=== PATIENT | male | born 1990 | race Caucasian/White ===

== ENCOUNTER 2016-06-17 12:06 | Emergency (ER) | payer OTHER ==
[2016-06-17 13:31] LABS: BASO # 0.1 K/mm3 (0.0-0.2); BASO % 1.7 % (0.0-1.0); EOS # 0.3 K/mm3 (0.0-0.50); EOS % 3.1 % (0.0-3.0); LARGE UNSTAINED CELL # 0.2 K/mm3 (0.0-0.4); LARGE UNSTAINED CELL % 1.8 % (0.0-4.0); LYMPH # 1.5 K/mm3 (1.5-6.5); LYMPH % 15.8 % (24.0-44.0); MEAN CORPUSCULAR HGB CONC 32.6 g/dl (32.0-36.5); MONO # 0.4 K/mm3 (0.0-0.8); MONO % 4.2 % (0.0-5.0); NEUTROPHILS # 6.2 K/mm3 (1.8-7.7); NEUTROPHILS % 73.4 % (36.0-66.0); PLATELET COUNT, AUTOMATED 247 k/mm3 (150-450); RED CELL DISTRIBUTION WIDTH 12.6 % (11.5-14.5); WHITE BLOOD COUNT 8.5 K/mm3 (4.0-10.0)
[2016-06-17 13:47] LABS: CONTROL LINE MONO INT CTR LINE PRESENT
[2016-06-17 13:55] LABS: ALBUMIN 4.1 GM/DL (3.2-5.2); ALKALINE PHOSPHATASE 80 U/L (45-117); ALT/SGPT 24 U/L (12-78); AMYLASE 111 U/L (25-115); ANION GAP 7 MEQ/L (8-16); AST/SGOT 12 U/L (15-37); BILIRUBIN,DIRECT < 0.1 MG/DL (0.0-0.2); BILIRUBIN,TOTAL 0.4 MG/DL (0.2-1.0); BLOOD UREA NITROGEN 17 MG/DL (7-18); CARBON DIOXIDE LEVEL 31 MEQ/L (21-32); CHLORIDE LEVEL 103 MEQ/L (98-107); GLOMERULAR FILTRATION RATE > 60.0 (>60); GLUCOSE, FASTING 89 MG/DL (70-105); POTASSIUM SERUM 3.6 MEQ/L (3.5-5.1); SODIUM LEVEL 141 MEQ/L (136-145); TOTAL PROTEIN 8.2 GM/DL (6.4-8.2)
--- NOTE | 2016-06-17 16:31 | EDDOCDS ---
Physician Documentation [facility] Name: Ganesh Bryson Age: 25 yrs Sex: Male : 1990 Arrival Date: 06/17/2016 Time: 12:06 Bed I3 / M3 Private MD: LEON ESCALANTE Disposition: 06/17/16 16:11 Discharged to Home/Self Care. Impression: Upper abdominal pain, unspecified - LUQ, Splenomegaly, not elsewhere classified - MILD. - Condition is Stable. - Discharge Instructions: Abdominal Pain, Adult, Enlarged Spleen. - Medication Reconciliation, Local Pharmacy Hours form. - Follow up: Emergency Department; When: As needed; Reason: Worsening of conditions. Follow up: Private Physician; When: 2 - 3 days; Reason: Wound/Symptom Recheck, Recheck today's complaints, Continuance of care. - Problem is new. - Symptoms have improved. Historical: - Allergies: no known allergies; - Home Meds: 1. Completed amoxicillin for throat infection 4 days ago. - PMHx: none; - PSHx: none; - Social history: Smoking status: Patient states was never smoker of tobacco. No barriers to communication noted, The patient speaks fluent Latvian. - Family history: Not pertinent. - : The pt / caregiver states he / she is not on anticoagulants. Home medication list is obtained from the patient. - Exposure Risk Screening:: None identified. Vital Signs: 06/17 12:07 BP 137 / 72; Pulse 86; Resp 16; Temp 96.1(O); Pulse Ox 100% on R/A; Weight 77.11 kg / elp 170 lbs (R); Height 5 ft. 9 in. (175.26 cm) (R); Pain 3/10; 16:00 BP 114 / 68 LA Sitting (auto/lg); Pulse 81; Resp 20; Temp 97.0(O); Pulse Ox 97% on R/A; bnb Pain 2/10; 12:07 Body Mass Index 25.10 (77.11 kg, 175.26 cm) elp MDM: 12:56 IV Saline Lock ordered. dt4 12:57 US Abd Limited Ordered. EDMS 12:57 NOTHING BY MOUTH+DIET ordered. EDMS 12:57 Amylase Ordered. EDMS 12:57 Basic Metabolic Profile Ordered. EDMS 12:57 CBC with Diff Ordered. EDMS 12:57 Lipase Ordered. EDMS 12:57 Liver Profile Ordered. EDMS 12:57 CRP Ordered. EDMS 12:57 Monoscreen Ordered. EDMS 13:46 Financial registration complete. lg 14:10 [facility] Payment Agreement was scanned into [employer] and attached to record. lg 15:09 ED course: DISCUSSED LAB RESULTS WITH PT AT THIS TIME. ADVISED STILL AWAITING U.S. dt4 REPORT AT THIS TIME, THE [employer] PROGRAM KEEPS CRASHING AND WE STILL DO NOT HAVE AN U.S. REPORT AT THIS TIME. PT VOICED UNDERSTANDING. LAYING SUPINE, WATCHING TV, IN NAD.. Signatures: Dispatcher [facility] EDHI Hadley Nazario RN RN Nevin Shearer, Luis Daniel Reg Dixie Francisco RN RN Chantel Quevedo, NELSON PALauren dt4 The chart was reviewed and I authenticate all verbal orders and agree with the evaluation and treatment provided.Attachments: 14:10 [facility] Payment Agreement lg MTDD
--- NOTE | 2016-06-17 16:31 | EDDOCDS ---
Nurse's Notes [facility] Name: Ganesh Bryson Age: 25 yrs Sex: Male : 1990 Arrival Date: 06/17/2016 Time: 12:06 Bed I3 / M3 Private MD: RILEON MEADOWS Diagnosis: Upper abdominal pain, unspecified-LUQ;Splenomegaly, not elsewhere classified-MILD Presentation: 06/17 12:11 Presenting complaint: Patient states: Generalized abdominal pain for 3 days, worsening dwg today. Risk factors: the patient reports not having a history of previous torsion. Adult Sepsis Screening: The patient does not have new or worsening altered mentation. Patient's respiratory rate is less than 22. Systolic blood pressure is greater than 100. Patient has a qSOFA score of 0- Negative Sepsis Screen. Suicide/Homicide risk assessment- the patient denies having any suicidal and/or homicidal ideations and does not present with any other emotional, behavioral or mental health complaints. Status: The patient is an active duty track service worker. Transition of care: patient was not received from another setting of care. 12:11 Acuity: MAHSA Level 3 dwg 12:11 Method Of Arrival: Walkin/Carried/Asstd dwg Triage Assessment: 12:13 General: Appears in no apparent distress. Pain: Pain currently is 3 out of 10 on a pain dwg scale. Pt Declines HIV testing. Historical: - Allergies: no known allergies; - Home Meds: 1. Completed amoxicillin for throat infection 4 days ago. - PMHx: none; - PSHx: none; - Social history: Smoking status: Patient states was never smoker of tobacco. No barriers to communication noted, The patient speaks fluent Guinean. - Family history: Not pertinent. - : The pt / caregiver states he / she is not on anticoagulants. Home medication list is obtained from the patient. - Exposure Risk Screening:: None identified. Screenin:26 Screening information is obtained from the patient. Fall risk: No risks identified. ttb Assistance ADL's: requires no assistance with activities of daily living. Abuse/DV Screen: The patient / caregiver reports he/she is: not in a situation that causes fear, pain or injury. Nutritional screening: No deficits noted. Advance Directives: Currently, there is no health care proxy. home support is adequate. Assessment: 13:23 General: Appears in no apparent distress, comfortable, well nourished, well groomed, ttb Behavior is appropriate for age, cooperative, pleasant. Pain: Location: upper abd. Neurological: Level of Consciousness is awake, alert. EENT: Reports "spots" on tonsills. Cardiovascular: Heart tones S1 S2 present Chest pain is denied. Respiratory: Airway is patent Respiratory effort is even, unlabored, Respiratory pattern is regular, symmetrical, Breath sounds are clear bilaterally. Reports shortness of breath on exertion pt states very very mild, not causing him any distess the patient has mild shortness of breath. GI: Abdomen is flat, Bowel sounds present X 4 quads. Abd is soft and non tender X 4 quads. Reports upper abd pain, nausea. Derm: Skin is normal. Injury Description: No known injury. 14:11 Reassessment: Patient appears in no apparent distress at this time. pt awaiting ttb results.. General: Appears in no apparent distress, comfortable. 14:59 Reassessment: Patient appears in no apparent distress at this time. General: Appears in ttb no apparent distress, comfortable. General: pt updated on plan of care. Awaiting US results still.... Respiratory: No deficits noted. 16:15 Reassessment: Patient appears in no apparent distress at this time. Patient denies pain ttb at this time. Patient states feeling better. Patient states symptoms have improved. pt states he is comfortable with DC at this time.. 16:15 Adult Sepsis Screening: The patient does not have new or worsening altered mentation. ttb Patient's respiratory rate is less than 22. Systolic blood pressure is greater than 100. Patient has a qSOFA score of 0- Negative Sepsis Screen. General: Appears in no apparent distress, comfortable. Pain: Denies pain. Neurological: Level of Consciousness is awake, alert. Respiratory: No deficits noted. Airway is patent. Vital Signs: 12:07 BP 137 / 72; Pulse 86; Resp 16; Temp 96.1(O); Pulse Ox 100% on R/A; Weight 77.11 kg elp (R); Height 5 ft. 9 in. (175.26 cm) (R); Pain 3/10; 16:00 BP 114 / 68 LA Sitting (auto/lg); Pulse 81; Resp 20; Temp 97.0(O); Pulse Ox 97% on R/A; bnb Pain 2/10; 12:07 Body Mass Index 25.10 (77.11 kg, 175.26 cm) [facility] Vitals: 12:07 Log In Time: June 17, 2016 at 12:05. [facility] ED Course: 12:07 Patient visited by Socorro Stern PCA. elp 12:07 [facility], LEON CARROL is Private Physician. elp 12:07 Patient moved to Waiting elp 12:11 Patient visited by Socorro Stern PCA. elp 12:11 Patient moved to Pre RCE elp 12:12 Triage Initiated dwg 12:18 Patient moved to Triage 1 ct3 12:45 [facility]band[facility]. dt4 12:45 Tamica Burnett MD is Attending Physician. dt4 12:45 Patient visited by Chantel Obando PA-C. dt4 12:56 Patient moved to I3 / M3 ct3 13:01 Patient moved to Ultrasound en 13:16 Patient moved to I3 / M3 en 13:23 Patient visited by Dixie Mann RN. ttb 13:23 Monoscreen Sent. ttb 13:23 CRP Sent. ttb 13:23 Amylase Sent. ttb 13:23 Basic Metabolic Profile Sent. ttb 13:23 CBC with Diff Sent. ttb 13:23 Lipase Sent. ttb 13:23 Liver Profile Sent. ttb 13:26 Patient visited by Dixie Mann RN. ttb 13:26 Inserted peripheral IV: 20gauge IV in left antecubital area and blood collected. ttb Patient tolerated the procedure well. Labs drawn. (by ED staff). 14:10 [facility] Payment Agreement was scanned into [email or web address] and attached to record. lg 14:12 Patient visited by Dixie Mann RN. ttb 14:59 Patient visited by Dixie Mann RN. ttb 14:59 Patient visited by Dixie Mann RN. ttb 15:09 Patient visited by Chantel Obando PA-C. dt4 16:01 Patient visited by Allie Fermin PCA. bnb 16:15 The patient / caregiver is instructed regarding the plan of care and ED course. Patient ttb has correct armband on for positive identification. 16:15 Discontinued IV lock intact, bleeding controlled, pressure dressing applied, No ttb redness/swelling at site. No procedures done that require assistance. Order Results: Lab Order: Amylase; SPEC'M 06/17/16 13:19 Test: AMYLASE; Value: 111; Range: 25-115; Units: U/L; Status: F Lab Order: Basic Metabolic Profile; SPEC'M 06/17/16 13:19 Test: GLUCOSE, FASTING; Value: 89; Range: 70-105; Units: MG/DL; Status: F Test: BLOOD UREA NITROGEN; Value: 17; Range: 7-18; Units: MG/DL; Status: F Test: CREATININE FOR GFR; Value: 1.10; Range: 0.70-1.30; Units: MG/DL; Status: F Test: SODIUM LEVEL; Range: 136-145; Units: MEQ/L; Status: I Test: POTASSIUM SERUM; Range: 3.5-5.1; Units: MEQ/L; Status: I Test: CHLORIDE LEVEL; Range: 98-107; Units: MEQ/L; Status: I Test: CARBON DIOXIDE LEVEL; Range: 21-32; Units: MEQ/L; Status: I Test: ANION GAP; Range: 8-16; Units: MEQ/L; Status: I Test: CALCIUM LEVEL; Range: 8.5-10.1; Units: MG/DL; Status: I Test: GLOMERULAR FILTRATION RATE; Value: > 60.0; Range: >60; Status: F Test: SODIUM LEVEL; Value: 141; Range: 136-145; Units: MEQ/L; Status: F Test: POTASSIUM SERUM; Value: 3.6; Range: 3.5-5.1; Units: MEQ/L; Status: F Test: CHLORIDE LEVEL; Value: 103; Range: 98-107; Units: MEQ/L; Status: F Test: CARBON DIOXIDE LEVEL; Value: 31; Range: 21-32; Units: MEQ/L; Status: F Test: ANION GAP; Value: 7; Range: 8-16; Abnormal: Below low normal; Units: MEQ/L; Status: F Test: CALCIUM LEVEL; Value: 9.0; Range: 8.5-10.1; Units: MG/DL; Status: F Test Note: ; Units are mL/min/1.73 m2 Chronic Kidney Disease Staging per NKF: Stage I & II GFR >=60 Normal to Mildly Decreased Stage III GFR 30-59 Moderately Decreased Stage IV GFR 15-29 Severely Decreased Stage V GFR <15 Very Little GFR Left ESRD GFR <15 on [employer]IATION CONSULTANT Lab Order: CBC with Diff; SPEC'M 06/17/16 13:19 Test: WHITE BLOOD COUNT; Value: 8.5; Range: 4.0-10.0; Units: K/mm3; Status: F Test: RED BLOOD COUNT; Value: 5.83; Range: 4.30-6.10; Units: M/mm3; Status: F Test: HEMOGLOBIN; Value: 16.9; Range: 14.0-18.0; Units: g/dl; Status: F Test: HEMATOCRIT; Value: 51.8; Range: 42.0-52.0; Units: %; Status: F Test: MEAN CORPUSCULAR VOLUME; Value: 89.0; Range: 80.0-96.0; Units: fl; Status: F Test: MEAN CORPUSCULAR HEMOGLOBIN; Value: 29.0; Range: 27.0-33.0; Units: pg; Status: F Test: MEAN CORPUSCULAR HGB CONC; Value: 32.6; Range: 32.0-36.5; Units: g/dl; Status: F Test: RED CELL DISTRIBUTION WIDTH; Value: 12.6; Range: 11.5-14.5; Units: %; Status: F Test: PLATELET COUNT, AUTOMATED; Value: 247; Range: 150-450; Units: k/mm3; Status: F Test: NEUTROPHILS %; Value: 73.4; Range: 36.0-66.0; Abnormal: Above high normal; Units: %; Status: F Test: LYMPH %; Value: 15.8; Range: 24.0-44.0; Abnormal: Below low normal; Units: %; Status: F Test: MONO %; Value: 4.2; Range: 0.0-5.0; Units: %; Status: F Test: EOS %; Value: 3.1; Range: 0.0-3.0; Abnormal: Above high normal; Units: %; Status: F Test: BASO %; Value: 1.7; Range: 0.0-1.0; Abnormal: Above high normal; Units: %; Status: F Test: LARGE UNSTAINED CELL %; Value: 1.8; Range: 0.0-4.0; Units: %; Status: F Test: NEUTROPHILS #; Value: 6.2; Range: 1.8-7.7; Units: K/mm3; Status: F Test: LYMPH #; Value: 1.5; Range: 1.5-6.5; Units: K/mm3; Status: F Test: MONO #; Value: 0.4; Range: 0.0-0.8; Units: K/mm3; Status: F Test: EOS #; Value: 0.3; Range: 0.0-0.50; Units: K/mm3; Status: F Test: BASO #; Value: 0.1; Range: 0.0-0.2; Units: K/mm3; Status: F Test: LARGE UNSTAINED CELL #; Value: 0.2; Range: 0.0-0.4; Units: K/mm3; Status: F Lab Order: Lipase; SPEC'M 06/17/16 13:19 Test: LIPASE; Value: 119; Range: 73-393; Units: U/L; Status: F Lab Order: Liver Profile; SPEC'M 06/17/16 13:19 Test: AST/SGOT; Value: 12; Range: 15-37; Abnormal: Below low normal; Units: U/L; Status: F Test: ALT/SGPT; Value: 24; Range: 12-78; Units: U/L; Status: F Test: ALKALINE PHOSPHATASE; Value: 80; Range: 45-117; Units: U/L; Status: F Test: BILIRUBIN,TOTAL; Value: 0.4; Range: 0.2-1.0; Units: MG/DL; Status: F Test: BILIRUBIN,DIRECT; Value: < 0.1; Range: 0.0-0.2; Units: MG/DL; Status: F Test: TOTAL PROTEIN; Value: 8.2; Range: 6.4-8.2; Units: GM/DL; Status: F Test: ALBUMIN; Value: 4.1; Range: 3.2-5.2; Units: GM/DL; Status: F Test: ALBUMIN/GLOBULIN RATIO; Value: 1.00; Range: 1.00-1.93; Status: F Lab Order: CRP; SPEC'M 06/17/16 13:19 Test: C REACTIVE PROTEIN QUANTITATIV; Value: < 0.30; Range: 0.00-0.30; Units: MG/DL; Status: F Lab Order: Monoscreen; SPEC'M 06/17/16 13:19 Test: MONO SCRN; Value: NEGATIVE; Range: NEGATIVE; Status: F Outcome: 16:11 Discharge ordered by Provider. dt4 16:15 Discharge Assessment: Patient awake, alert and oriented x 3. No cognitive and/or ttb functional deficits noted. Patient verbalized understanding of disposition instructions. Patient awake and alert. patient administered narcotics - no. The following High Risk Discharge criteria are identified: None. Discharged to home ambulatory. Condition: good Condition: stable Condition: improved. Discharge instructions given to patient, Instructed on discharge instructions, follow up and referral plans. medication usage, Demonstrated understanding of instructions, medications, Pt was receptive of discharge instructions/ teaching. Ultrasound Study completed. Property :Personal belongings accompany Pt. 16:30 Patient left the ED. ttb Signatures: Hadley Nazario, RN RN Nevin Shearer, Reg Reg lg Doyle, Pamela, CREATIVE SERVICES WRITER CREATIVE SERVICES WRITER ct3 Dixie Mann RN RN ttb Socorro Stern, CREATIVE SERVICES WRITER CREATIVE SERVICES WRITER zeyadp Chantel Obando, PANilsonC PANilsonC dt4 Camelia Vincent Brittney, CREATIVE SERVICES WRITER CREATIVE SERVICES WRITER bnb MTDD
--- NOTE | 2016-06-19 11:02 | REP ---
Limited abdominal ultrasound of the spleen: The spleen measures 10.9 x 4.7 x 11.3 cm for a volume of 578.9 ml and is mildly enlarged. Splenic parenchyma is homogeneous. The left kidney is normal size measuring 10.6 cm craniocaudad. There is no left hydronephrosis. Signed by Hadley Michaels MD 06/17/2016 03:49 P
--- NOTE | 2016-06-19 17:30 | EDDOCDS ---
Physician Documentation [facility] Name: Ganesh Bryson Age: 25 yrs Sex: Male : 1990 Arrival Date: 06/17/2016 Time: 12:06 Bed I3 / M3 Private MD: LEON ESCALANTE Disposition: 06/17/16 16:11 Discharged to Home/Self Care. Impression: Upper abdominal pain, unspecified - LUQ, Splenomegaly, not elsewhere classified - MILD. - Condition is Stable. - Discharge Instructions: Abdominal Pain, Adult, Enlarged Spleen. - Medication Reconciliation, Local Pharmacy Hours form. - Follow up: Emergency Department; When: As needed; Reason: Worsening of conditions. Follow up: Private Physician; When: 2 - 3 days; Reason: Wound/Symptom Recheck, Recheck today's complaints, Continuance of care. - Problem is new. - Symptoms have improved. Historical: - Allergies: no known allergies; - Home Meds: 1. Completed amoxicillin for throat infection 4 days ago. - PMHx: none; - PSHx: none; - Social history: Smoking status: Patient states was never smoker of tobacco. No barriers to communication noted, The patient speaks fluent Serbian. - Family history: Not pertinent. - : The pt / caregiver states he / she is not on anticoagulants. Home medication list is obtained from the patient. - Exposure Risk Screening:: None identified. Vital Signs: 06/17 12:07 BP 137 / 72; Pulse 86; Resp 16; Temp 96.1(O); Pulse Ox 100% on R/A; Weight 77.11 kg / elp 170 lbs (R); Height 5 ft. 9 in. (175.26 cm) (R); Pain 3/10; 16:00 BP 114 / 68 LA Sitting (auto/lg); Pulse 81; Resp 20; Temp 97.0(O); Pulse Ox 97% on R/A; bnb Pain 2/10; 12:07 Body Mass Index 25.10 (77.11 kg, 175.26 cm) elp MDM: 12:56 IV Saline Lock ordered. dt4 12:57 US Abd Limited Ordered. EDMS 12:57 NOTHING BY MOUTH+DIET ordered. EDMS 12:57 Amylase Ordered. EDMS 12:57 Basic Metabolic Profile Ordered. EDMS 12:57 CBC with Diff Ordered. EDMS 12:57 Lipase Ordered. EDMS 12:57 Liver Profile Ordered. EDMS 12:57 CRP Ordered. EDMS 12:57 Monoscreen Ordered. EDMS 13:46 Financial registration complete. lg 14:10 [facility] Payment Agreement was scanned into [employer] and attached to record. lg 15:09 ED course: DISCUSSED LAB RESULTS WITH PT AT THIS TIME. ADVISED STILL AWAITING U.S. dt4 REPORT AT THIS TIME, THE [employer] PROGRAM KEEPS CRASHING AND WE STILL DO NOT HAVE AN [employer] REPORT AT THIS TIME. PT VOICED UNDERSTANDING. LAYING SUPINE, WATCHING TV, IN NAD.. 17:20 T-Sheet-- Draft Copy was scanned into [employer] and attached to record. klr Signatures: Dispatcher [employer] Hadley Ward, RN RN Nevin Shearer, Reg Reg lg Dixie Mann RN RN ttb Tschudi, Diane, PA-C PA-C dt4 Erin Calderon The chart was reviewed and I authenticate all verbal orders and agree with the evaluation and treatment provided.Attachments: 14:10 [facility] Payment Agreement lg 17:20 T-Sheet-- Draft Copy klr Chart Complete MTDD
--- NOTE | 2016-06-19 17:30 | EDDOCDS ---
Nurse's Notes [facility] Name: Ganesh Bryson Age: 25 yrs Sex: Male : 1990 Arrival Date: 06/17/2016 Time: 12:06 Bed I3 / M3 Private MD: DELEON MEADOWS Diagnosis: Upper abdominal pain, unspecified-LUQ;Splenomegaly, not elsewhere classified-MILD Presentation: 06/17 12:11 Presenting complaint: Patient states: Generalized abdominal pain for 3 days, worsening dwg today. Risk factors: the patient reports not having a history of previous torsion. Adult Sepsis Screening: The patient does not have new or worsening altered mentation. Patient's respiratory rate is less than 22. Systolic blood pressure is greater than 100. Patient has a qSOFA score of 0- Negative Sepsis Screen. Suicide/Homicide risk assessment- the patient denies having any suicidal and/or homicidal ideations and does not present with any other emotional, behavioral or mental health complaints. Status: The patient is an active duty telephone service representative. Transition of care: patient was not received from another setting of care. 12:11 Acuity: MAHSA Level 3 dwg 12:11 Method Of Arrival: Walkin/Carried/Asstd dwg Triage Assessment: 12:13 General: Appears in no apparent distress. Pain: Pain currently is 3 out of 10 on a pain dwg scale. Pt Declines HIV testing. Historical: - Allergies: no known allergies; - Home Meds: 1. Completed amoxicillin for throat infection 4 days ago. - PMHx: none; - PSHx: none; - Social history: Smoking status: Patient states was never smoker of tobacco. No barriers to communication noted, The patient speaks fluent Gabonese. - Family history: Not pertinent. - : The pt / caregiver states he / she is not on anticoagulants. Home medication list is obtained from the patient. - Exposure Risk Screening:: None identified. Screenin:26 Screening information is obtained from the patient. Fall risk: No risks identified. ttb Assistance ADL's: requires no assistance with activities of daily living. Abuse/DV Screen: The patient / caregiver reports he/she is: not in a situation that causes fear, pain or injury. Nutritional screening: No deficits noted. Advance Directives: Currently, there is no health care proxy. home support is adequate. Assessment: 13:23 General: Appears in no apparent distress, comfortable, well nourished, well groomed, ttb Behavior is appropriate for age, cooperative, pleasant. Pain: Location: upper abd. Neurological: Level of Consciousness is awake, alert. EENT: Reports "spots" on tonsills. Cardiovascular: Heart tones S1 S2 present Chest pain is denied. Respiratory: Airway is patent Respiratory effort is even, unlabored, Respiratory pattern is regular, symmetrical, Breath sounds are clear bilaterally. Reports shortness of breath on exertion pt states very very mild, not causing him any distess the patient has mild shortness of breath. GI: Abdomen is flat, Bowel sounds present X 4 quads. Abd is soft and non tender X 4 quads. Reports upper abd pain, nausea. Derm: Skin is normal. Injury Description: No known injury. 14:11 Reassessment: Patient appears in no apparent distress at this time. pt awaiting ttb results.. General: Appears in no apparent distress, comfortable. 14:59 Reassessment: Patient appears in no apparent distress at this time. General: Appears in ttb no apparent distress, comfortable. General: pt updated on plan of care. Awaiting US results still.... Respiratory: No deficits noted. 16:15 Reassessment: Patient appears in no apparent distress at this time. Patient denies pain ttb at this time. Patient states feeling better. Patient states symptoms have improved. pt states he is comfortable with DC at this time.. 16:15 Adult Sepsis Screening: The patient does not have new or worsening altered mentation. ttb Patient's respiratory rate is less than 22. Systolic blood pressure is greater than 100. Patient has a qSOFA score of 0- Negative Sepsis Screen. General: Appears in no apparent distress, comfortable. Pain: Denies pain. Neurological: Level of Consciousness is awake, alert. Respiratory: No deficits noted. Airway is patent. Vital Signs: 12:07 BP 137 / 72; Pulse 86; Resp 16; Temp 96.1(O); Pulse Ox 100% on R/A; Weight 77.11 kg elp (R); Height 5 ft. 9 in. (175.26 cm) (R); Pain 3/10; 16:00 BP 114 / 68 LA Sitting (auto/lg); Pulse 81; Resp 20; Temp 97.0(O); Pulse Ox 97% on R/A; bnb Pain 2/10; 12:07 Body Mass Index 25.10 (77.11 kg, 175.26 cm) [facility] Vitals: 12:07 Log In Time: June 17, 2016 at 12:05. [facility] ED Course: 12:07 Patient visited by Socorro Stern PCA. elp 12:07 [facility], LEON CARROL is Private Physician. elp 12:07 Patient moved to Waiting elp 12:11 Patient visited by Socorro Stern PCA. elp 12:11 Patient moved to Pre RCE elp 12:12 Triage Initiated dwg 12:18 Patient moved to Triage 1 ct3 12:45 Chantel Obando PA-C is [facility]. dt4 12:45 Tamica Burnett MD is Attending Physician. dt4 12:45 Patient visited by Chantel Obando PA-C. dt4 12:56 Patient moved to I3 / M3 ct3 13:01 Patient moved to Ultrasound en 13:16 Patient moved to I3 / M3 en 13:23 Patient visited by Dixie Mann RN. ttb 13:23 Monoscreen Sent. ttb 13:23 CRP Sent. ttb 13:23 Amylase Sent. ttb 13:23 Basic Metabolic Profile Sent. ttb 13:23 CBC with Diff Sent. ttb 13:23 Lipase Sent. ttb 13:23 Liver Profile Sent. ttb 13:26 Patient visited by Dixie Mann RN. ttb 13:26 Inserted peripheral IV: 20gauge IV in left antecubital area and blood collected. ttb Patient tolerated the procedure well. Labs drawn. (by ED staff). 14:10 [facility] Payment Agreement was scanned into [employer] and attached to record. lg 14:12 Patient visited by Dixie Mann RN. ttb 14:59 Patient visited by Dixie Mann RN. ttb 14:59 Patient visited by Dixie Mann RN. ttb 15:09 Patient visited by Chantel Obando PA-C. dt4 16:01 Patient visited by Allie Fermin PCA. bnb 16:15 The patient / caregiver is instructed regarding the plan of care and ED course. Patient ttb has correct armband on for positive identification. 16:15 Discontinued IV lock intact, bleeding controlled, pressure dressing applied, No ttb redness/swelling at site. No procedures done that require assistance. 17:20 T-Sheet-- Draft Copy was scanned into [employer] and attached to record. klr 06/19 11:18 US Abd Limited Returned. EDMS Order Results: Lab Order: Amylase; SPEC'M 06/17/16 13:19 Test: AMYLASE; Value: 111; Range: 25-115; Units: U/L; Status: F Lab Order: Basic Metabolic Profile; SPEC'M 06/17/16 13:19 Test: GLUCOSE, FASTING; Value: 89; Range: 70-105; Units: MG/DL; Status: F Test: BLOOD UREA NITROGEN; Value: 17; Range: 7-18; Units: MG/DL; Status: F Test: CREATININE FOR GFR; Value: 1.10; Range: 0.70-1.30; Units: MG/DL; Status: F Test: SODIUM LEVEL; Range: 136-145; Units: MEQ/L; Status: I Test: POTASSIUM SERUM; Range: 3.5-5.1; Units: MEQ/L; Status: I Test: CHLORIDE LEVEL; Range: 98-107; Units: MEQ/L; Status: I Test: CARBON DIOXIDE LEVEL; Range: 21-32; Units: MEQ/L; Status: I Test: ANION GAP; Range: 8-16; Units: MEQ/L; Status: I Test: CALCIUM LEVEL; Range: 8.5-10.1; Units: MG/DL; Status: I Test: GLOMERULAR FILTRATION RATE; Value: > 60.0; Range: >60; Status: F Test: SODIUM LEVEL; Value: 141; Range: 136-145; Units: MEQ/L; Status: F Test: POTASSIUM SERUM; Value: 3.6; Range: 3.5-5.1; Units: MEQ/L; Status: F Test: CHLORIDE LEVEL; Value: 103; Range: 98-107; Units: MEQ/L; Status: F Test: CARBON DIOXIDE LEVEL; Value: 31; Range: 21-32; Units: MEQ/L; Status: F Test: ANION GAP; Value: 7; Range: 8-16; Abnormal: Below low normal; Units: MEQ/L; Status: F Test: CALCIUM LEVEL; Value: 9.0; Range: 8.5-10.1; Units: MG/DL; Status: F Test Note: ; Units are mL/min/1.73 m2 Chronic Kidney Disease Staging per NKF: Stage I & II GFR >=60 Normal to Mildly Decreased Stage III GFR 30-59 Moderately Decreased Stage IV GFR 15-29 Severely Decreased Stage V GFR <15 Very Little GFR Left ESRD GFR <15 on CELERY WRAPPER Lab Order: CBC with Diff; SPEC'M 06/17/16 13:19 Test: WHITE BLOOD COUNT; Value: 8.5; Range: 4.0-10.0; Units: K/mm3; Status: F Test: RED BLOOD COUNT; Value: 5.83; Range: 4.30-6.10; Units: M/mm3; Status: F Test: HEMOGLOBIN; Value: 16.9; Range: 14.0-18.0; Units: g/dl; Status: F Test: HEMATOCRIT; Value: 51.8; Range: 42.0-52.0; Units: %; Status: F Test: MEAN CORPUSCULAR VOLUME; Value: 89.0; Range: 80.0-96.0; Units: fl; Status: F Test: MEAN CORPUSCULAR HEMOGLOBIN; Value: 29.0; Range: 27.0-33.0; Units: pg; Status: F Test: MEAN CORPUSCULAR HGB CONC; Value: 32.6; Range: 32.0-36.5; Units: g/dl; Status: F Test: RED CELL DISTRIBUTION WIDTH; Value: 12.6; Range: 11.5-14.5; Units: %; Status: F Test: PLATELET COUNT, AUTOMATED; Value: 247; Range: 150-450; Units: k/mm3; Status: F Test: NEUTROPHILS %; Value: 73.4; Range: 36.0-66.0; Abnormal: Above high normal; Units: %; Status: F Test: LYMPH %; Value: 15.8; Range: 24.0-44.0; Abnormal: Below low normal; Units: %; Status: F Test: MONO %; Value: 4.2; Range: 0.0-5.0; Units: %; Status: F Test: EOS %; Value: 3.1; Range: 0.0-3.0; Abnormal: Above high normal; Units: %; Status: F Test: BASO %; Value: 1.7; Range: 0.0-1.0; Abnormal: Above high normal; Units: %; Status: F Test: LARGE UNSTAINED CELL %; Value: 1.8; Range: 0.0-4.0; Units: %; Status: F Test: NEUTROPHILS #; Value: 6.2; Range: 1.8-7.7; Units: K/mm3; Status: F Test: LYMPH #; Value: 1.5; Range: 1.5-6.5; Units: K/mm3; Status: F Test: MONO #; Value: 0.4; Range: 0.0-0.8; Units: K/mm3; Status: F Test: EOS #; Value: 0.3; Range: 0.0-0.50; Units: K/mm3; Status: F Test: BASO #; Value: 0.1; Range: 0.0-0.2; Units: K/mm3; Status: F Test: LARGE UNSTAINED CELL #; Value: 0.2; Range: 0.0-0.4; Units: K/mm3; Status: F Lab Order: Lipase; SPEC'M 06/17/16 13:19 Test: LIPASE; Value: 119; Range: 73-393; Units: U/L; Status: F Lab Order: Liver Profile; SPEC'M 06/17/16 13:19 Test: AST/SGOT; Value: 12; Range: 15-37; Abnormal: Below low normal; Units: U/L; Status: F Test: ALT/SGPT; Value: 24; Range: 12-78; Units: U/L; Status: F Test: ALKALINE PHOSPHATASE; Value: 80; Range: 45-117; Units: U/L; Status: F Test: BILIRUBIN,TOTAL; Value: 0.4; Range: 0.2-1.0; Units: MG/DL; Status: F Test: BILIRUBIN,DIRECT; Value: < 0.1; Range: 0.0-0.2; Units: MG/DL; Status: F Test: TOTAL PROTEIN; Value: 8.2; Range: 6.4-8.2; Units: GM/DL; Status: F Test: ALBUMIN; Value: 4.1; Range: 3.2-5.2; Units: GM/DL; Status: F Test: ALBUMIN/GLOBULIN RATIO; Value: 1.00; Range: 1.00-1.93; Status: F Lab Order: CRP; SPEC'M 06/17/16 13:19 Test: C REACTIVE PROTEIN QUANTITATIV; Value: < 0.30; Range: 0.00-0.30; Units: MG/DL; Status: F Lab Order: Monoscreen; SPEC'M 06/17/16 13:19 Test: MONO SCRN; Value: NEGATIVE; Range: NEGATIVE; Status: F Radiology Order: US Abd Limited Test: US Abd Limited REASON FOR EXAMINATION: luq pain, ?mono w/ splenomegaly; Limited abdominal ultrasound of the spleen:; ; The spleen measures 10.9 x 4.7 x 11.3 cm for a volume of 578.9 ml and is mildly; enlarged. Splenic parenchyma is homogeneous.; ; The left kidney is normal size measuring 10.6 cm craniocaudad. There is no left; hydronephrosis.; ; ; Signed by; Hadley Michaels MD 06/17/2016 03:49 P; Outcome: 06/17 16:11 Discharge ordered by Provider. dt4 16:15 Discharge Assessment: Patient awake, alert and oriented x 3. No cognitive and/or ttb functional deficits noted. Patient verbalized understanding of disposition instructions. Patient awake and alert. patient administered narcotics - no. The following High Risk Discharge criteria are identified: None. Discharged to home ambulatory. Condition: good Condition: stable Condition: improved. Discharge instructions given to patient, Instructed on discharge instructions, follow up and referral plans. medication usage, Demonstrated understanding of instructions, medications, Pt was receptive of discharge instructions/ teaching. Ultrasound Study completed. Property :Personal belongings accompany Pt. 16:30 Patient left the ED. ttb Signatures: Dispatcher [employer] EDMS Hadley Nazario, RN RN Nevin Shearer, Reg Reg lg Pamela Doyle, OPERATIONS RESEARCH SCIENTIST OPERATIONS RESEARCH SCIENTIST ct3 iDxie Mann, RN RN ttb Socorro Stern, OPERATIONS RESEARCH SCIENTIST OPERATIONS RESEARCH SCIENTIST elp Chantel Obando, PA-C PA-C dt4 Camelia Vincent Kathie klr Becker, Brittney, OPERATIONS RESEARCH SCIENTIST OPERATIONS RESEARCH SCIENTIST bnb Chart Complete MTDD
--- NOTE | 2016-06-19 17:30 | EDDOCDS ---
Physician Documentation [facility] Name: Ganesh Bryson Age: 25 yrs Sex: Male : 1990 Arrival Date: 06/17/2016 Time: 12:06 Bed I3 / M3 Private MD: LEON ESCALANTE Disposition: 06/17/16 16:11 Discharged to Home/Self Care. Impression: Upper abdominal pain, unspecified - LUQ, Splenomegaly, not elsewhere classified - MILD. - Condition is Stable. - Discharge Instructions: Abdominal Pain, Adult, Enlarged Spleen. - Medication Reconciliation, Local Pharmacy Hours form. - Follow up: Emergency Department; When: As needed; Reason: Worsening of conditions. Follow up: Private Physician; When: 2 - 3 days; Reason: Wound/Symptom Recheck, Recheck today's complaints, Continuance of care. - Problem is new. - Symptoms have improved. Historical: - Allergies: no known allergies; - Home Meds: 1. Completed amoxicillin for throat infection 4 days ago. - PMHx: none; - PSHx: none; - Social history: Smoking status: Patient states was never smoker of tobacco. No barriers to communication noted, The patient speaks fluent Kiswahili. - Family history: Not pertinent. - : The pt / caregiver states he / she is not on anticoagulants. Home medication list is obtained from the patient. - Exposure Risk Screening:: None identified. Vital Signs: 06/17 12:07 BP 137 / 72; Pulse 86; Resp 16; Temp 96.1(O); Pulse Ox 100% on R/A; Weight 77.11 kg / elp 170 lbs (R); Height 5 ft. 9 in. (175.26 cm) (R); Pain 3/10; 16:00 BP 114 / 68 LA Sitting (auto/lg); Pulse 81; Resp 20; Temp 97.0(O); Pulse Ox 97% on R/A; bnb Pain 2/10; 12:07 Body Mass Index 25.10 (77.11 kg, 175.26 cm) elp MDM: 12:56 IV Saline Lock ordered. dt4 12:57 US Abd Limited Ordered. EDMS 12:57 NOTHING BY MOUTH+DIET ordered. EDMS 12:57 Amylase Ordered. EDMS 12:57 Basic Metabolic Profile Ordered. EDMS 12:57 CBC with Diff Ordered. EDMS 12:57 Lipase Ordered. EDMS 12:57 Liver Profile Ordered. EDMS 12:57 CRP Ordered. EDMS 12:57 Monoscreen Ordered. EDMS 13:46 Financial registration complete. lg 14:10 [facility] Payment Agreement was scanned into [employer] and attached to record. lg 15:09 ED course: DISCUSSED LAB RESULTS WITH PT AT THIS TIME. ADVISED STILL AWAITING U.S. dt4 REPORT AT THIS TIME, THE SYNAPSE PROGRAM KEEPS CRASHING AND WE STILL DO NOT HAVE AN U.S. REPORT AT THIS TIME. PT VOICED UNDERSTANDING. LAYING SUPINE, WATCHING TV, IN NAD.. 17:20 T-Sheet-- Draft Copy was scanned into [employer] and attached to record. klr Signatures: Dispatcher [employer] Hadley Ward, RN RN Nevin Shearer, Reg Reg lg Dixie Mann RN RN ttb Tschudi, Diane, PA-C PA-C dt4 Erin Calderon The chart was reviewed and I authenticate all verbal orders and agree with the evaluation and treatment provided.Attachments: 14:10 [facility] Payment Agreement lg 17:20 T-Sheet-- Draft Copy klr Chart Complete MTDD
== END 2016-06-17 16:30 | disposition home or self-care (01) ==
LOC: M ED 12:06
DX: R10.12 Left upper quadrant pain (principal); R16.1 Splenomegaly, not elsewhere classified